=== PATIENT | male | born 1985 | race Caucasian/White ===

== ENCOUNTER 2022-05-08 09:55 | Day surgery (SDC) | payer BC ==
[2022-05-08 09:01] LABS: SARS-CoV-2 Antigen Rapid Res Negative (Negative)
[2022-05-08] MEDS ORDERED: Ringers Lactate 1,000 ML IV ONE ×2 (10:16→14:08)
[2022-05-08] MEDS ORDERED: CEFAZOLIN 2 GM IN 0.9% NACL 2 GM/100 ML BAG ONE (10:16)
[2022-05-08] MEDS ORDERED: BUPIVACAINE 0.25% PF 10 ML VIAL IJ ONE (10:55)
[2022-05-08] MEDS ORDERED: BUPIVACAINE 0.25% PF 30 ML VIAL ONE (11:36)
[2022-05-08] MEDS ORDERED: MIDAZOLAM HCL 2 MG/2 ML INJ ONE ×3 (12:04→13:37)
[2022-05-08] MEDS ORDERED: FENTANYL CITR 100 MCG/2 ML ONE (12:07)
[2022-05-08] MEDS ORDERED: ROCURONIUM 50 MG/5 ML VIAL IV ONE ×2 (12:07→12:42)
[2022-05-08] MEDS ORDERED: ONDANSETRON 4 MG/2 ML VIAL ONE (12:08)
[2022-05-08] MEDS ORDERED: LIDOCAINE 2% MPF 5 ML VIAL ONE (12:08)
[2022-05-08] MEDS ORDERED: dexAMETHasone 4 MG/ML VIAL ONE (12:39)
[2022-05-08] MEDS ORDERED: GLYCOPYRROLATE 0.2 MG/ML SYR ONE ×2 (13:18)
[2022-05-08] MEDS ORDERED: NEOSTIGMINE 1 MG/ML -10 ML VIAL ONE (13:19)
--- NOTE | 2022-05-08 13:19 | P.OP ---
Preoperative diagnosis: Ventral Hernia Postoperative diagnosis: Ventral Hernia Primary procedure: Laparoscopic ventral hernia repair with mesh Anesthesia: GETA + Local Estimated blood loss: < 5cc Specimen: hernia contents Findings: incarcerated pre-peritoneal midline ventral hernia adipose Complications: None Implants: Bard Ventralite Mesh with echo position, sorbafix Transferred to: Recovery Room Condition: Good
[2022-05-08] MEDS ORDERED: KETOROLAC 30 MG/ML INJ ONE (13:22)
[2022-05-08] MEDS ORDERED: SUGAMMADEX SODIUM 200 MG/2 ML VIAL IV ONE (13:23)
[2022-05-08] MEDS ORDERED: MEPERIDINE HCL 50 MG/ML ONE (13:28)
[2022-05-08] MEDS ORDERED: HYDROMORPHONE HCL 1 MG/ML INJ ONE (13:33)
[2022-05-08] MEDS ORDERED: propofoL 200 MG/20 ML VIAL IV ONE ×2 (13:33)
[2022-05-08] MEDS: HYDROMORPHONE HCL 1 MG/ML INJ ONE ×2 (13:58→14:03)
--- NOTE | 2022-05-08 14:04 | OP ---
Date of Procedure: 05/08/2022 Surgeon: Ryan Radford MD, Preoperative Diagnosis: Ventral hernia. Postoperative Diagnosis: Ventral hernia. Procedure Performed: Laparoscopic ventral hernia repair with mesh. Anesthesia: General endotracheal plus local with 0.25% Marcaine. Estimated Blood Loss: Less than 5 cc. Specimen: Hernia contents which is predominantly incarcerated adipose preperitoneal fat in the midli ne. Complications: None. Implants: Bard Ventralight mesh 11.4 cm round mesh with Echo Positioning System and SorbaFix absorba ble fixation system. Disposition: Patient transferred to the recovery room in good condition. Procedure In Detail: After informed consent was obtained, patient was brought to the operating room, prepped and draped in the usual sterile fashion. After adequate anesthesia was achieved, the area o f the left upper quadrant was anesthetized with 0.25% Marcaine, sharply incised. 5 mm 0-degree optic al trocar was introduced into the abdomen without evidence of any complication. Insufflation obtaine d 15 mmHg at this time. No injury to vital structures upon entry into the abdomen. Additional troca r was chosen at the left lower quadrant. This area was similarly anesthetized and sharply incised. A 5 mm trocar was placed under direct vision without any evidence of complication. At this point, I left the left upper quadrant 5 mm trocar and I placed the 12 mm trocar in the left lower quadrant. A total of 2 trocars were used throughout the procedure. At this point, I used the LigaSure device to take the preperitoneal fat down where a defect was felt in the midline in the umbilicus and slightly superior to the umbilicus heading cranially. A midline hernia defect was appreciated. Preperitonea l fat was removed from this hernia defect and ligated using LigaSure device extending up to the falci form ligament. At this point, this was removed. The preperitoneal adipose tissue was removed and pl aced an EndoCatch bag and removed through the 12 mm trocar at this point. The hernia defect was appr eciated at this point and swept clean. At this point, the 11.[address] mesh with Echo Positioning System was deployed in the periumbilical position on the superior aspect of the umbilicu s to cover the entire ventral hernia defect. At this point, the SorbaFix absorbable fixation system was used to place a single crown. The balloon deployment system was removed at this point and found to be intact on the back table. The remaining double-crown was placed using the SorbaFix absorbable fixation tacks to the anterior abdominal wall with good apposition of the mesh to the anterior abdomi nal wall. No hemostatic maneuvers were required. The abdomen was partially desufflated at this poin t. Mesh was found to be in good position. The 12 mm trocar was then removed. The 12 mm trocar site was closed using a Wali-Yeison suture passer with an 0 Vicryl in interrupted fashion. Good appr oximation of the tissues under direct visualization. The abdomen was completely desufflated under di rect vision without evidence of complication. The remaining trocars were removed. All skin incision s were copiously irrigated, closed with a 4-0 Monocryl and Dermabond was placed over top. The patien t tolerated the procedure well without evidence of complication and transferred to PACU in good condi tion. All counts were correct at the end of the case. CHUY/SCOOTER Voice ID: [id number] Report ID: [id number]
[2022-05-08] MEDS: MORPHINE 4 MG/ML SYR ONE ×2 (14:20→14:37)
[2022-05-08 14:51] VITALS: TEMP 97.5
[2022-05-08] MEDS ORDERED: HYDROCODONE/APAP 5/325 MG TAB ONE (15:25)
[2022-05-08 17:05] VITALS: BP 135/85; O2SAT 97
== END 2022-05-08 16:55 | disposition home or self-care (01) ==
LOC: OR 09:55
PROVIDERS: ATTEND Surgery
PROC: 0WUF4JZ Supplement Abdominal Wall with Synthetic Substitute, Percutaneous Endoscopic Approach (ICD-10-PCS; principal; 2022-05-08 12:00)
DX: K42.9 Umbilical hernia without obstruction or gangrene (principal); Z20.822 Contact with and (suspected) exposure to COVID-19; I10 Essential (primary) hypertension; F41.9 Anxiety disorder, unspecified
CPT/HCPCS: 36415; 88302; 87811; 49653; J2704 ×2; J1100; J2710; J2250 ×2; J3010; J2175; J1170 ×2; J0690; J7120 ×2; J2405; C1781